=== PATIENT | male | born 1995 | race Two or more races ===

== ENCOUNTER 2023-09-23 22:49 | Emergency (ER) | payer OTHER ==
[~2023-09-23] VITALS: Ht 180.3 cm; Wt 131.5 kg
[2023-09-23] MEDS ORDERED: LISINOPRIL20 MG PO (23:18)
[2023-09-23] MEDS ORDERED: FAMOTIDINE/PF 20 MG in 0.9 % SODIUM CHLORIDE 8 ML IV PUSH STA (23:38)
[2023-09-23] MEDS ORDERED: ONDANSETRON HCL 2 MG/ML VIAL ONE (23:41)
[2023-09-23] MEDS ORDERED: KETOROLAC TROMETHAMINE 30 MG VIAL ONE (23:41)
[2023-09-23] MEDS ORDERED: FAMOTIDINE/PF 20 MG/2 ML VIAL ONE (23:42)
[2023-09-23] MEDS ORDERED: ONDANSETRON HCL 2 MG/ML VIAL IV ONE (23:45)
[2023-09-23] MEDS ORDERED: 0.9 % SODIUM CHLORIDE 1,000 ML IV SCH (23:45)
[2023-09-23] MEDS ORDERED: KETOROLAC TROMETHAMINE 30 MG VIAL IV ONE (23:45)
[2023-09-24 00:01] LABS: HEMATOCRIT 45.2 % (39.0-48.0); HEMOGLOBIN 15.8 g/dL (13-16.00); MEAN CELL VOLUME 90.6 fL (80.0-100.00); MEAN CORPUSCULAR HEMOGLOBIN 31.7 pg (27.00-32.0); MEAN CORPUSCULAR HGB CONC 34.9 g/dl (32.0-36.0); PLATELET COUNT 347 K/uL (150-450); RED BLOOD COUNT 4.99 M/uL (4.00-6.00); RED CELL DISTRIBUTION WIDTH 13.7 % (11.5-14.5)
[2023-09-24 01:15] LABS: ALBUMIN 4.3 gm/dL (3.4-5.0); BILIRUBIN TOTAL 0.67 mg/dL (0.3-1.2); CALCIUM 9.6 mg/dL (8.5-10.1); CREATININE SERUM 0.91 mg/dL (0.70-1.30); GFR 97.82; GLOBULINA 3.7 G/DL (2.4-3.5); POTASSIUM 3.47 mEq/L (3.5-5.1)
[2023-09-24] MEDS ORDERED: ZOFRAN8 MG PO (01:52)
[2023-09-24] MEDS ORDERED: PEPCID40 MG PO (01:52)
== END 2023-09-24 02:34 | disposition home or self-care (01) ==
LOC: ER 22:50
PROVIDERS: General Practice
DX: R11.2 Nausea with vomiting, unspecified (principal)